=== PATIENT | female | born 1945 | race Caucasian/White ===

== ENCOUNTER → 2016-07-22 | Outpatient (CLI) | payer MEDICARE, BC ==
[~2016-07-22] MED LIST: ACTONEL150 MG PO; BENTYL10 M1 PO; CALCIUM + D 6001 TA1 PO; CALCIUM + VITAM1 TAB PO; CIPRO PO; COATED ASPIRIN325 M1 PO; CRESTOR PO; CRESTOR5 MG PO; EVISTA60 M1 PO; FAMOTIDINE PO; FISH OIL 1,0001 EACH PO; FISH OIL500 MG PO; FLAGYL PO; HCTZ PO; LIPITOR40 MG PO; LISINOPRIL-HCTZ1 T16 PO; LOMOTIL WHITE2.5 M1 PO; LOPRESSOR PO; LORTAB 5/500 TA1 TA1 PO; METOPROLOL SUCC50 MG PO; MOTRIN600 M2 PO; MOTRIN600 MG PO; MULTI-DAY1 TAB PO; MULTIVITAMIN W-1 TAB PO; PREDNISONE PO; PRILOSEC PO; PRILOSEC20 MG PO; WELCHOL3.75 GM PO; ZESTRIL40 MG PO; ZOFRANODT PO
--- NOTE | ~2016-07-22 | MR113 ---
[facility] A Service of [facility] RADIOLOGY TEXT RESULTS PATIENT: MAGALIE COREA LOCATION: [facility] : 41 UNIT #: [id number] AGE: [address]: Dolores Beach MD SEX: F ORDER DR: [id number] [place] [id number] O MR#: [id number] Acc #: [id number] NAME: MAGALIE COREA : 1945 SEX: F STUDY DATE/TIME: 07/22/2016 11:47 UNIT: [facility] ROOM: STUDY DESCRIPTION: MR Lumbar Wo Contrast Attending Physician: Dolores Beach M.D. Referring Physician: Dolores Beach M.D. Ordering Physician: Dolores Beach M.D. Primary Care Physician: Dolores Beach M.D. MRI CENTER REPORT This report is preliminary unless electronic signature is present. EXAM Lumbar spine MR no contrast 07/23/2015 PROCEDURE Routine unenhanced lumbar spine MRI HISTORY Low back pain radiating to right side. Symptoms for 2 weeks. COMPARISON Prior MRI 02/23/2006. FINDINGS There is a degenerative scoliosis, and very slight grade 1 4-5 anterolisthesis. There is some discogenic marrow signal changes but no evidence of marrow infiltration or replacement and the distal cord and conus are normal in position and appearance. The paraspinous tissues are unremarkable. At L1-2 disc and endplate change cause minimal canal narrowing, and borderline and no left foraminal narrowing. At 2-3, disc and endplate change again cause borderline canal narrowing and borderline if any bilateral foraminal narrowing. At 3-4, disc and endplate change again cause borderline canal narrowing. There is facet arthropathy as well. There is borderline right and moderate left foraminal stenosis. Left foraminal narrowing at 3-4 is stable to marginally worsened since the prior study. At 4-5, disc and endplate change and facet arthropathy cause no canal stenosis, and it appears there has been laminectomy at 4-5 since the prior [facility] A Service of [facility] RADIOLOGY TEXT RESULTS PATIENT: MAGALIE COREA LOCATION: [facility] : 41 UNIT #: [id number] AGE: [address]: Dolores Beach MD SEX: F ORDER DR: study. Canal stenosis seen previously has resolved. There is mild right and left foraminal stenosis. At 5-1, there is mild canal stenosis and there are several small synovial cysts at least one of which projects laterally to the right foramen resulting in mild right foraminal stenosis and there is minimal left foraminal stenosis. Right foraminal narrowing at 5-1 is new since the prior study. IMPRESSION Lumbar degenerative changes as well as some postoperative change at 4-5. Please see above for details regarding canal and foraminal narrowing. No acute appearing abnormality at any level. Dictated by... Sanjeev Mortensen M.D. THIS IS AN ELECTRONICALLY VERIFIED REPORT Sanjeev Mortensen M.D. at 07/23/2016 3:35 PM JUAN ANTONIO/bereket TD: 07/23/2016 14:14 JOB #: [id number] MRI CENTER REPORT
== END | disposition home or self-care (01) ==
LOC: SMRI 11:09
DX: M54.16 Radiculopathy, lumbar region (principal); M43.16 Spondylolisthesis, lumbar region; M48.06 Spinal stenosis, lumbar region; M46.86 Other specified inflammatory spondylopathies, lumbar region
CPT/HCPCS: 72148

== ENCOUNTER → 2016-12-08 | Outpatient (CLI) | payer MEDICARE, BC ==
--- NOTE | ~2016-12-08 | CT4 ---
[facility] A Service of [facility] RADIOLOGY TEXT RESULTS PATIENT: MAGALIE COREA [facility]: [facility] : 41 UNIT #: [id number] AGE: [address]: Hany Han MD SEX: F ORDER DR: [id number] [facility] [address] [place], [place] [address] [id number] O MR#: [id number] Acc #: [id number] NAME: MAGALIE COREA : 1945 SEX: F STUDY DATE/TIME: 12/08/2016 7:40 UNIT: [facility] ROOM: STUDY DESCRIPTION: CT Abd and Pelv Wo Cont Attending Physician: Hany Han M.D. Referring Physician: Hany Han M.D. Ordering Physician: Hany Han M.D. Primary Care Physician: Dolores Beach M.D. MEDICAL IMAGING REPORT This report is preliminary unless electronic signature is present EXAM CT abdomen and pelvis without contrast INDICATIONS Follow up splenic artery aneurysm. TECHNIQUE CT of the abdomen and pelvis was performed without contrast. Coronal and sagittal reformatted images were obtained. This CT exam was performed with one or more of the following radiation dose reduction techniques: automatic control, adjustment of mA and/or kV according to patient size, and iterative reconstruction. COMPARISON Made with 09/03/2015. FINDINGS There are granulomatous calcifications in the base of the right lung. The liver and gallbladder are unremarkable. Stable 1.1 cm peripherally calcified splenic artery aneurysm. The kidneys are unremarkable. Stable right adrenal gland nodule probably an adenoma. The left adrenal gland is unremarkable. Pancreas is unremarkable. No evidence for aortic aneurysm. PELVIS: Sigmoid diverticulosis. Normal appendix. Fibroid uterus. Bone windows show degenerative changes of the lumbar spine. IMPRESSION Stable 1.1 cm peripherally calcified splenic artery aneurysm Dictated by... Chan Franco M.D. [facility] A Service of [facility] RADIOLOGY TEXT RESULTS PATIENT: MAGALIE COREA [facility] : 41 UNIT #: [id number] AGE: [address]: Hany Han MD SEX: F ORDER DR: THIS IS AN ELECTRONICALLY VERIFIED REPORT Chan Franco M.D. at 12/08/2016 4:37 PM BHAVANA/bereket TD: 12/08/2016 13:03 JOB #: [id number] MEDICAL IMAGING REPORT Page 1 of 1 COPY
== END | disposition home or self-care (01) ==
LOC: CCAT 07:18
DX: I72.8 Aneurysm of other specified arteries (principal)
CPT/HCPCS: 74176